=== PATIENT | male | born 1955 | race Two or more races ===

== ENCOUNTER → 2024-06-01 | Emergency (ER) | payer OTHER ==
[~2024-06-01] VITALS: Ht 185.4 cm; Wt 95.3 kg
[~2024-06-01] MED LIST: CEFTRIAXONE SODIUM 1,000 MG VIAL IM ONE; DIPHTH,PERTUSS(ACELL),TET VAC 0.5 ML VIAL IM ONE; DUI500 PO; LIDOCAINE HCL 1% 10ML VIAL PERCUT ONE
== END | disposition home or self-care (01) ==
LOC: ER 19:13
DX: S61.012A Laceration without foreign body of left thumb without damage to nail, initial encounter (principal); W45.8XXA Other foreign body or object entering through skin, initial encounter; Y93.89 Activity, other specified; Y92.828 Other wilderness area as the place of occurrence of the external cause; Y99.9 Unspecified external cause status; I10 Essential (primary) hypertension